=== PATIENT | male | born 1965 | race Caucasian/White ===

== ENCOUNTER 2018-02-17 21:50 | Emergency (ER) | payer OTHER ==
[~2018-02-17] VITALS: Ht 172.7 cm; Wt 110.0 kg
[~2018-02-17 21:50] MED LIST: FLEXERIL10 MG PO; PREDNISONE20 MG PO
[2018-02-18 00:01] VITALS: BP 140/85
== END 2018-02-18 00:01 | disposition home or self-care (01) ==
LOC: EME 21:50
PROC: 09C37ZZ Extirpation of Matter from Right External Auditory Canal, Via Natural or Artificial Opening (ICD-10-PCS; principal; 2018-02-17)
DX: T16.9XXA Foreign body in ear, unspecified ear, initial encounter (principal)
CPT/HCPCS: 99281; 99283